=== PATIENT | female | born 1940 | race Caucasian/White ===

== ENCOUNTER 2018-07-05 14:04 | Inpatient (IN) | payer MEDICARE ==
[~2018-07-05] VITALS: Ht 162.6 cm; Wt 59.1 kg
--- OUTSIDE RECORDS SUMMARY | 2018-07-05 14:07 | XMS REPORT | Encounter Summary ---
Author Organization Unknown Address [address] [place] [id number] Phone [phone] Reason for Visit Medical Complaint Instructions 1. Impacted cerumen earwax blockage: care instructions Discussion Note: None recorded. Plan of Care Patient Instructions Earwax is a natural substance that protects the ear canal. Normally, earwax drains from the ears and does not cause problems. Sometimes earwax builds up and hardens. Earwax blockage (also called cerumen impaction) can cause some loss of hearing and pain. When wax is tightly packed, you will need to have your doctor remove it. Follow-up care is a brice part of your treatment and safety. Be sure to make and go to all appointments, and call your doctor if you are having problems. Its also a good idea to know your test results and keep a list of the medicines you take. Reminders Provider Appointments None recorded. Lab None recorded. Referral None recorded. Procedures None recorded. Surgeries None recorded. Imaging None recorded. Medications None recorded. Medications Administered None recorded. Vitals Height Weight BMI Blood Pressure 5 ft 3 in 127 lbs 22.5 kg/m2 110/60 mm[Hg] Lab Results None recorded. Allergies Code Code System Name Reaction Severity Status Onset NKDA Problems No Known Problems Procedures None recorded. Vaccine List None recorded. Social History Smoking Status Former Smoker Past Encounters 12/21/2017 Impacted Cerumen Dana Raymond, [facility]-C: [address] [place] [address], Ph. History of Present Illness Ear Complaint Reported By: Patient HPI: Location: bilateral. Quality: ears feel full/plugged. Context: no sick contacts, no recent swimming/water in ear, no exposure to second hand smoke, no head trauma, not grinding teeth, no recent air travel. Modifying factors: does not hurt to lie on, or pull on ear, does not hurt to chew. Associated Symptoms: no discharge from the ears, no nose/sinus problems, no popping noise in the ears, no ringing in the ears, no fever, no chills, no earache, no dizziness, no vertigo, no headache, no muscle aches, hearing loss Review of Systems:ROS as noted in the HPI Review of Systems Basic Reported By: Patient Physical Exam Adult Basic, Adult Female Complete, Adult Male Complete Reported By: Patient Constitutional: General Appearance: healthy-appearing, well-nourished, well-developed. Level of Distress: NAD. Ambulation: ambulating normally Psychiatric: Mental Status: active and alert. Orientation: to time, to place, to person Eyes: Lids and Conjunctivae: non-injected, no discharge, no pallor Wrm-Ugpf-Vhyxf-Throat: Ears: no lesions on external ear, no outer ear tenderness, EACs clear, TMs clear, TM mobility normal, EAC occluded with cerumen, cerumen removed to visualize TM. Hearing: no hearing loss. Nose: no lesions on external nose, nares patent, no septal deviation, nasal passages clear, no sinus tenderness, no nasal discharge. Lips, Teeth, and Gums: no mouth or lip ulcers, no bleeding gums, normal dentition. Oropharynx: moist mucous membranes, no erythema, no exudates, tonsils not enlarged Lungs: Respiratory effort: no dyspnea, no tachypnea, no use of accessory muscles, no intercostal retractions Cardiovascular: Heart Auscultation: RRR, no murmurs Neurologic: Gait and Station: normal gait, normal station
--- OUTSIDE RECORDS SUMMARY | 2018-07-05 14:07 | XMS REPORT | Continuity of Care Document ---
Author Author [facility] Interface Address Unknown Phone Unavailable Problems Problem Status Onset Date Classification Date Reported Comments Source Impacted cerumen 12/21/2017 Diagnosis 12/21/2017 [facility] Medications Medication Details Route Status Patient Instructions Ordering Provider Order Date Source Allergies, Adverse Reactions, Alerts Substance Category Reaction Severity Reaction type Status Date Reported Comments Source Immunizations Immunization Date Given Site Status Last Updated Comments Source Results Order Name Results Value Reference Range Date Interpretation Comments Source Vital Signs Vital Sign Value Date Comments Source Diastolic (mm Hg) 60 12/21/2017 [facility] Height 63 12/21/2017 [facility] Systolic (mm Hg) 110 12/21/2017 [facility] Weight 127 12/21/2017 [facility] Encounters Location Location Details Encounter Type Encounter Number Reason For Visit Attending Provider ADM Date DC Date Status Source [place] - [id number] Dana Andrade, CLAIMS DIRECTOR-C: [address] [place] [address], Ph. [id number] Dana Raymond 12/21/2017 [facility] Procedures Procedure Code Date Perfomer Comments Source
[2018-07-05] MEDS ORDERED: ASPIRIN 81 MG CHEW TAB PO ONE ×2 (14:15→18:15)
--- NOTE | 2018-07-05 14:45 | NUR ---
RADIOLOGY AT BEDSIDE AT THIS TIME FOR CXR.
--- NOTE | 2018-07-05 15:34 | Diagnostic Imaging Report ---
Examination: Single AP view of the chest. COMPARISON: None. INDICATION: Chest and left arm pain DISCUSSION: The patient is rotated to the right. The lungs are well-inflated. Patchy right middle lobe airspace disease may be attributable to patient rotation. The left lung is clear. Tortuous thoracic aorta with convexity of the right paratracheal region of the mediastinum likely reflective of great vessel tortuosity. No overt pulmonary edema. No acute osseous abnormality. IMPRESSION: Patchy right middle lobe opacity may be a consequence of rightward patient rotation. Upright PA and lateral chest radiographs are suggested for further evaluation when clinically feasible. Otherwise no acute cardiopulmonary abnormality. Signed by: Dr. Phoenix Malone M.D. on 07/05/2018 3:31 PM
[2018-07-05 15:56] LABS: BILIRUBIN,URINE NEGATIVE (NEGATIVE); CLARITY,URINE SL CLOUDY (CLEAR); COLOR,URINE YELLOW (YELLOW); KETONES,URINE NEGATIVE (NEGATIVE); LEUKOCYTE ESTERASE ,URINE NEGATIVE (NEGATIVE); NITRITE,URINE NEGATIVE (NEGATIVE); PROTEIN,URINE DIPSTICK NEGATIVE (NEGATIVE); URINE UROBILINOGEN 0.2 mg/dL (0.2 - 1)
[2018-07-05 15:59] LABS: BACTERIA,URINE MANY /HPF; EPITHELIAL CELLS,URINE MANY /LPF
[2018-07-05 16:02] LABS: EOSINOPHILS % 0.1 % (0.0-6.0); HEMATOCRIT 38.6 % (34.2-44.1); HEMOGLOBIN 12.1 g/dL (12.0-16.0); LYMPHOCYTES % 1.7 % (18.0-39.1); MEAN CORPUSCULAR HEMOGLOBIN 30.8 pg (28-32); MEAN CORPUSCULAR HGB CONC 31.3 g/dL (31-35); MEAN CORPUSCULAR VOLUME 98.2 fL (81-99); MONOCYTES % 0.7 % (4.4-11.3); NEUTROPHILS % 4.5 % (38.7-80.0); PLATELET COUNT 309 x10e3/uL (140-360); RED BLOOD COUNT 3.93 x10e6/uL (3.6-5.1); RED CELL DISTRIBUTION WIDTH 13.7 % (11.7-14.4)
[2018-07-05 16:05] LABS: INR 0.88; PARTIAL THROMBOPLASTIN TIME 38.2 seconds (23.8-35.5); PROTHROMBIN TIME 12.4 seconds (11.9-14.5)
[2018-07-05 17:32] LABS: CHLORIDE 101 mmol/L (98-107); POTASSIUM 4.2 mmol/L (3.5-5.1); SODIUM 143 mmol/L (136-145)
[2018-07-05 17:37] LABS: ANION GAP 14.2 mmol/L (8-16); CARBON DIOXIDE 32 mmol/L (22-29)
[2018-07-05 17:38] LABS: ALANINE AMINOTRANSFERASE 14 IU/L (0-55); ALBUMIN 3.5 g/dL (3.5-5.0); ALKALINE PHOSPHATASE 59 IU/L (40-150); BLOOD UREA NITROGEN 19 mg/dL (7-26); BUN/CREATININE RATIO 22 (6-25); CALCIUM 9.5 mg/dL (8.4-10.2); CREATINE KINASE 86 IU/L (29-168); CREATININE, SERUM 0.87 mg/dL (0.57-1.11); EST GLOMERULAR FILTRATION RATE > 60 ML/MIN (60-); GLUCOSE 95 mg/dL (74-118)
[2018-07-05 18:45] LABS: CREATINE KINASE MB 1.7 ng/mL (0-5.0)
[2018-07-05] MEDS ORDERED: ALBUTEROL/IPRATROPIUM 3 ML NEB NEB ONE (19:15)
--- NOTE | 2018-07-05 19:15 | NUR ---
REPORT GIVEN TO SHERLY SPENCE
[2018-07-05] MEDS ORDERED: NITROGLYCERIN 0.4 MG SUBL SL PRN (19:30)
[2018-07-05 20:00] VITALS: BP 122/68
--- NOTE | 2018-07-05 20:15 | NUR ---
REPORT CALLED AND PT TRANSFERED TO RM 104. ACCEPTING NURSE IS AWARE OF PTS ARRIVAL TO FLOOR.
--- OUTSIDE RECORDS SUMMARY | 2018-07-05 20:33 | XMS REPORT ---
Author [facility] Address Unknown Phone Unavailable Care Team Providers Care Consumer Services Consultant Name Role Phone Johnathan ALCANTARA Unavailable Unavailable Problems This patient has no known problems. Allergies, Adverse Reactions, Alerts This patient has no known allergies or adverse reactions. Medications This patient has no known medications. Results Test Description Test Time Test Comments Text Results Atomic Results Result Comments CHEST SINGLE (PORTABLE) 2018-07-05 15:28:00 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 CO MPARISON: None. INDICATION: Chest and left arm pain DISCUSSION: The patient is rotated to the right. The lungs are well-inflated. Patchy right middle lobe airspace disease may be attributable to patient rotation. The left lung is clear. Tortuous thoracic aorta with convexity of the right paratracheal region of the mediastinum likely reflective of great vessel tortuosity. No overt pulmonary edema. No acute osseous abnormality. IMPRESSION: Patchy right middle lobe opacity may be a consequence of rightward patient rotation. Upright PA and lateral chest radiographs are suggested for further evaluation when clinically feasible. Otherwise no acute cardiopulmonary abnormality. Signed by: Dr. Fabienne Liz M.D. on 07/05/2018 3:31 PM Dictated By: FABIENNE LIZ MD [id number] Transcribed By: MARCELLUS on 07/05/18 1531 COPY TO: SATINDER MONET NP
[2018-07-06] VITALS (9 sets, daily range): BP systolic 101–119; BP diastolic 65–76
[2018-07-06 04:23] LABS: CREATINE KINASE MB 1.2 ng/mL (0-5.0)
[2018-07-06] MEDS ORDERED: METOPROLOL TART25 MG PO (04:38)
[2018-07-06] MEDS ORDERED: KLOR-CON M2020 MEQ PO (04:38)
[2018-07-06] MEDS ORDERED: ALBUTEROL0.63 MG/3 (04:38)
[2018-07-06] MEDS ORDERED: HYDROCHLOROTHIA25 MG (04:38)
[2018-07-06] MEDS ORDERED: DIGOXIN125 MCG PO (04:38)
[2018-07-06] MEDS ORDERED: ASPIR 8181 MG PO (04:38)
--- NOTE | 2018-07-06 07:41 | NUR ---
PATIENT HAD AFIB WITH RVR WAS GIVEN STAT METOPROLOL VIA IV, PATIENT IS STABLE, CALL LIGHT IN REACH, WILL CONTINUE TO MONITOR
[2018-07-06] MEDS ORDERED: METOPROLOL TARTRATE INJ 1 MG/ML VIAL IV PRN (07:45)
[2018-07-06] MEDS ORDERED: ALBUTEROL SULF 0.083% NEB SOLN 3 ML NEB NEB PRN (08:00)
[2018-07-06] MEDS ORDERED: LEVALBUTEROL HCL SOLN NEBU 0.63 MG/3 ML NEB INH PRN (08:45)
[2018-07-06] MEDS ORDERED: METOPROLOL TARTRATE 25 MG TAB PO SCH (09:00)
[2018-07-06] MEDS ORDERED: ASPIRIN 325 MG TAB EC PO SCH (09:00)
[2018-07-06] MEDS: ASPIRIN 81 MG CHEW TAB PO SCH (09:17)
[2018-07-06] MEDS: HYDROCHLOROTHIAZIDE 25 MG TAB PO SCH (09:17)
[2018-07-06] MEDS: DIGOXIN 0.125 MG TAB PO SCH (09:18)
[2018-07-06] MEDS: POTASSIUM CHLORIDE 20 MEQ TAB CR PO SCH ×2 (09:18→18:26)
[2018-07-06] MEDS: PREDNISONE 20 MG TAB PO SCH (09:19)
--- NOTE | 2018-07-06 10:15 | NUR ---
Patient alert and responsive, Tachy and Afib with RVR controlled at this time at 80-90 bpm, on continuous oxygen, OOB to bathroom with assist. Patient seen by Dr. Nelson and rounds by attending, orders in place for Nebs, Steroids, CT Chest and will monitor
[2018-07-06] MEDS: LEVALBUTEROL HCL SOLN NEBU 0.63 MG/3 ML NEB INH SCH ×2 (11:05→20:30)
[2018-07-06 11:38] LABS: CREATINE KINASE MB 1.5 ng/mL (0-5.0)
--- NOTE | 2018-07-06 11:40 | NUR ---
Breathing treatments completed by RT and patient feeling better.
--- NOTE | 2018-07-06 11:40 | NUR ---
Patient's daughter in the room and signed consent for for stress test to be completed today and Patient NPO at this time
[2018-07-06] MEDS ORDERED: SODIUM CHLORIDE 0.9% 50ML 0 ML ONE (11:49)
[2018-07-06] MEDS ORDERED: IOPAMIDOL 370 MG/ML 200 ML INFUS..BTL INJ ONE ×2 (11:49→15:43)
--- NOTE | 2018-07-06 12:28 | Diagnostic Imaging Report ---
EXAM: CT Chest WITH contrast INDICATION: Cough, shortness of breath, possible pneumonia. COMPARISON: Chest radiograph 07/05/2018. TECHNIQUE: Chest was scanned utilizing a multidetector helical scanner from the lung apex through the level of the adrenal glands without administration of IV contrast. Coronal and sagittal reformations were obtained. Routine protocol was performed. IV CONTRAST: 100 mL of Isovue-370. RADIATION DOSE: Total DLP: 414.6 mGy*cm Dose modulation, iterative reconstruction, and/or weight based adjustment of the mA/kV was utilized to reduce the radiation dose to as low as reasonably achievable. FINDINGS: LINES/ TUBES: None. LUNGS AND AIRWAYS: The central airways are patent. There is diffuse mild bronchial wall thickening. There are upper lung predominant moderate centrilobular and paraseptal emphysematous changes. Motion artifact limits evaluation for focal abnormality. There is biapical pleural-parenchymal opacity, suggestive of prior granulomatous disease. There is homogeneous likely atelectasis in the right middle lobe with associated volume loss. Mild patchy atelectasis in the right greater than left lower lobe. There is a groundglass area measuring up to 1.6 cm in the right upper lobe on series 3, image 44. There is a 5 mm groundglass nodule in the left upper lobe on image 62. PLEURA: The pleural spaces are clear. HEART AND MEDIASTINUM: The thyroid gland is normal. No mediastinal, hilar or axillary lymphadenopathy. Mild cardiomegaly. No evidence of pericardial effusion. Atherosclerotic calcifications of the coronary arteries, thoracic aorta, and branch vessels. UPPER ABDOMEN: Limited contrast-enhanced views of the upper abdomen. Indeterminant left adrenal nodule, measuring up to 1.7 cm (series 2, image 121; 74 HU). BONES: No acute osseous abnormality. No suspicious lytic or blastic lesions. Degenerative changes of the visualized spine. SOFT TISSUES: Unremarkable. IMPRESSION: No evidence of lobar pneumonia. Homogeneous opacity in the right middle lobe likely represents atelectasis. Focal groundglass opacity in the right upper lobe, measuring up to 1.6 cm, which may reflect a small site of aspiration or pneumonia. However, given the focal appearance, groundglass nodule is possible. Additional 5 mm left upper lobe groundglass nodule. Recommend follow-up chest CT in 3 months. Moderate emphysematous changes of the lungs. Indeterminant 1.7 cm left adrenal nodule. Adrenal protocol CT or MRI is suggested for further evaluation. Signed by: Dr. Amanda Tellez MD on 07/06/2018 12:25 PM
--- NOTE | 2018-07-06 13:05 | Consultation ---
DATE OF CONSULTATION: 07/06/2018 Cardiology Consultation REASON FOR CONSULTATION: Chest pain. HISTORY OF PRESENT ILLNESS: This is a 78-year-old woman with a history of atrial fibrillation, severe COPD, and hypertension, who presents with complaints of chest pain. The patient developed chest pain yesterday morning, described as sharp with radiation to the left shoulder. This pain was 8/10 in severity and lasted several hours. There was no nausea or diaphoresis. The patient endorses chronic shortness of breath with difficulty speaking due to her significant dyspnea. REVIEW OF SYSTEMS: Negative except as per HPI. PAST MEDICAL HISTORY: 1. Atrial fibrillation, not on anticoagulation due to fall and bleeding risk. 2. Severe COPD. 3. Hypertension. ALLERGIES: PLEASE SEE EMR MEDICATIONS: Please see medication list. SOCIAL HISTORY: The patient previously smoked. No alcohol or illicit drugs. FAMILY HISTORY: Noncontributory to current illness. PHYSICAL EXAMINATION: VITAL SIGNS: Temperature 97.6 degrees, pulse 104, respiratory rate of 24, blood pressure 115/76, and oxygen saturation 96% on 3 L nasal cannula. GENERAL: Frail elderly woman, in no acute distress. Awake and alert. HEENT: Normocephalic, atraumatic. Pupils equal. No scleral icterus. NECK: Supple. No thyromegaly or cervical lymphadenopathy. No carotid bruits. LUNGS: Clear to auscultation bilaterally. CARDIOVASCULAR: Tachycardic. Irregularly irregular. Systolic murmur at the right upper sternal border. Normal S1, S2. ABDOMEN: Soft, nontender. EXTREMITIES: No edema. LABORATORY DATA: WBC 7.13, hemoglobin 12.1, hematocrit 38.6, platelets 309. Sodium 142, potassium 4.2, chloride 101, CO2 of 32, BUN 19, and creatinine 0.87. Troponin less than 0.5. Cholesterol 150, triglycerides 82, LDL 60, HDL 74. EKG; atrial fibrillation, nonspecific ST and T-wave abnormalities. IMPRESSION: 1. Chest pain. 2. Atrial fibrillation with rapid ventricular response. 3. Chronic obstructive pulmonary disease. 4. Hypertension. RECOMMENDATIONS: Repeat cardiac biomarkers were within normal limits. Given the patient's risk factors, ischemic evaluation is warranted with nuclear stress test. Echocardiogram was noted with preserved LVEF. Unable to evaluate diastolic function due to atrial fibrillation. Continue aspirin. We will increase metoprolol for better rate control. Continue digoxin. Monitor the patient on telemetry while admitted. Although the patient's CHADS-VASc score is elevated, she is not on anticoagulation due to her fall and bleeding risk. Thank you for this consult. We will continue to follow. MD JAYANT Byrne/MODL /[id number]
[2018-07-06] MEDS ORDERED: ATROPINE SULFATE 1 MG/ML VIAL IV ONE (14:43)
--- NOTE | 2018-07-06 15:15 | History and Physical ---
HISTORY OF PRESENT ILLNESS: A 78-year-old white female, very poor historian. PAST MEDICAL HISTORY: Positive for COPD, history of chronic atrial fibrillation, came here with chest pain. REVIEW OF SYSTEMS: Cardiovascular: She had chest pain, not now. No palpitations. Respiratory: She has shortness of breath and cough. Gastrointestinal: No nausea, no vomiting. No diarrhea. Genitourinary: No frequency or dysuria. ALLERGIES: NOT ALLERGIC TO ANYTHING. SOCIAL HISTORY: She used to smoke. She does not smoke any more. She does not drink alcohol. PAST MEDICAL HISTORY: Positive for hypertension, chronic atrial fibrillation, and COPD. PHYSICAL EXAMINATION: HEART: Showed irregularly irregular heart rate. Normal S1, S2 sound. LUNGS: Show decreased breath sounds bilaterally. No wheezing. No rhonchi. No crackles. ABDOMEN: Soft. EXTREMITIES: Show no evidence of cyanosis or trauma. VITAL SIGNS: Blood pressure is 105/68, temperature 97.4, heart rate 85 per minute, respiratory rate 20 per minute, oxygen saturation 96%. IMAGING DATA: Chest x-ray showed questionable infiltrate. Recommend another chest x-ray view. LABORATORY DATA: BMP; sodium 143, potassium 4.2, chloride 101, CO2 of 32, BUN 19, creatinine 0.87, glucose 95. On CBC, white count 7.13, hemoglobin 12.1, hematocrit 38.6, platelet count 309,000. PT 12.4, INR 0.88, PTT is 38.2. AST 23, ALT 14, total bilirubin 0.5, alkaline phosphatase 69. IMPRESSION: 1. Chronic obstructive pulmonary disease exacerbation. 2. Chest pain. 3. Atrial fibrillation with rapid ventricular response. PLAN OF TREATMENT: We are going to change albuterol to Xopenex q.6 hours around the clock and q.4 hours as needed for shortness of breath. Continue aspirin 81 mg daily. Continue digoxin 0.125 mg daily, hydrochlorothiazide 25 mg daily, metoprolol 25 mg twice a day, metoprolol 5 mg IV q.6 hours as needed for tachycardia, nitroglycerin p.r.n. for chest pain, no more than three tablets. She is also on potassium 20 mEq twice a day. Prednisone 20 mg daily. Spiriva 1 inhalation daily. Cardiology consult with Dr. Salcido because of chest pain. Three sets of cardiac enzymes were done, the first one was borderline high at 0.05. Two last ones were completely normal. EKG shows atrial fibrillation. No evidence of any ST-segment elevation or depression . MD WICHO Miranda/FAUSTINO /[id number]
[2018-07-06] MEDS ORDERED: SODIUM CHLORIDE 0.9% 50ML 50 ML ONE (15:43)
--- NOTE | 2018-07-06 16:03 | NUR ---
Patient picked up for procedure
--- NOTE | 2018-07-06 16:05 | NUR ---
PATIENT PICKED UP FOR PROCEDURE
--- NOTE | 2018-07-06 17:06 | Consultation ---
DATE OF CONSULTATION: Pulmonary consultation. REASON FOR CONSULTATION: Possible chronic obstructive pulmonary disease. HISTORY OF PRESENT ILLNESS: Ms. Pacheco is a 78-year-old female. I am unable to get much history as patient is unable to give me much history. She is extremely hard of hearing and most of the history is with writing. She came in with chest pain and tightness in the emergency room. She is denying any complaints of chest pain, nausea, or vomiting. She has history of smoking, but quit 20 years ago. She has hoarseness of her voice, which she reports has been there for quite some time. REVIEW OF SYSTEMS: GENERAL: Denies any fever or chills. HEAD: Denies any head trauma. ENT: Denies any earaches. CVS: Chest pain. RESPIRATORY: Shortness of breath. The rest of the review of systems are negative except as in HPI. PAST MEDICAL HISTORY: 1. Hypertension. 2. Hyperlipidemia. 3. Reported history of COPD. FAMILY AND SOCIAL HISTORY: She currently does not smoke. Ex-smoker. PHYSICAL EXAMINATION: VITAL SIGNS: Temperature 97.6, pulse of 104, blood pressure 115/76, respiratory rate of 18, and O2 saturation 96%. HEENT: Head is atraumatic and normocephalic. NECK: Supple. CHEST: Clear to auscultation bilaterally with occasional wheezing. Hoarseness. HEART: S1, S2 audible. ABDOMEN: Soft, nontender, and nondistended. EXTREMITIES: No pedal edema. NEUROLOGIC: Awake and alert. No focal neurologic deficit. IMAGING DATA: Chest x-ray is reported as right middle lobe opacity. ASSESSMENT: Ms. Pacheco is a 78-year-old female. She presented with chest pain, abnormal chest x-ray, likely positional hoarseness of voice, which she reports has been chronic. Current problems: 1. Abnormal chest x-ray, possible mass. 2. History of smoking. 3. Weight loss and hoarseness. PLAN: I agree with CT chest, which has been ordered. Continue the patient on nebulizer treatment. We will follow the CT chest and further recommendation after reviewing CT chest. Thank you for this consult. MD DELMIS Dawson/FAUSTINO /[id number]
--- NOTE | 2018-07-06 18:24 | NUR ---
PATIENT RETURNED FROM PROCEDURE, NO SIGNS OF DISTRESS, RESTING COMFORTABLY, FAMILY MEMBER IN ROOM, CALL LIGHT WITHIN REACH, WILL CONTINUE TO MONITOR
[2018-07-06] MEDS: METOPROLOL TARTRATE 25 MG TAB PO SCH (18:26)
[2018-07-06 20:35] LABS: CREATINE KINASE MB 1.7 ng/mL (0-5.0)
[2018-07-07] VITALS (7 sets, daily range): BP systolic 99–123; BP diastolic 62–89
[2018-07-07] MEDS: LEVALBUTEROL HCL SOLN NEBU 0.63 MG/3 ML NEB INH SCH ×3 (01:45→13:00)
[2018-07-07] MEDS ORDERED: TIOTROPIUM 18 MCG INH POWDER INH SCH (06:00)
--- NOTE | 2018-07-07 07:06 | NUR ---
Received patient this morning, alert and responsive, in bed during rounds, and pains well managed, some dyspnea on exertion and on O2 2.5L NC, NEB treatments at this time, bed alarms in place and will monitor
[2018-07-07] MEDS: ASPIRIN 81 MG CHEW TAB PO SCH (09:02)
[2018-07-07] MEDS: HYDROCHLOROTHIAZIDE 25 MG TAB PO SCH (09:02)
[2018-07-07] MEDS: POTASSIUM CHLORIDE 20 MEQ TAB CR PO SCH ×2 (09:03→17:36)
[2018-07-07] MEDS: METOPROLOL TARTRATE 25 MG TAB PO SCH ×2 (09:03→17:36)
[2018-07-07] MEDS: PREDNISONE 20 MG TAB PO SCH (09:03)
[2018-07-07] MEDS: DIGOXIN 0.125 MG TAB PO SCH (09:03)
--- NOTE | 2018-07-07 09:41 | NUR ---
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
--- NOTE | 2018-07-07 11:33 | NUR ---
Rounds by Dr. Nelson and discussed plan with patient. Recommending attending to consult ENT for laryngoscopy due to hoarseness.
--- NOTE | 2018-07-07 12:25 | Progress Note ---
DATE: 07/07/2018 Cardiology Progress Note The patient continues to complain of some throat and chest pain. She endorses chronic shortness of breath. OBJECTIVE: VITAL SIGNS: Temperature 97.9 degrees, pulse 95, respiratory rate 21 blood pressure 100/64, oxygen saturation 95% on 2.5 L nasal cannula. GENERAL: Awake, alert, in no acute distress, frail, elderly woman. LUNGS: Clear to auscultation bilaterally. No wheezes or crackles. CARDIOVASCULAR: Tachycardic, irregularly irregular. Normal S1, S2. Systolic murmur at the right upper sternal border. ABDOMEN: Soft, nontender. EXTREMITIES: No edema. CARDIAC MEDICATIONS: Metoprolol tartrate 50 mg p.o. b.i.d., digoxin 0.125 mg p.o. daily, hydrochlorothiazide 25 mg p.o. daily, aspirin 81 mg p.o. daily. LABORATORY DATA: None today. TELEMETRY: Atrial fibrillation with rapid ventricular response. IMPRESSION: 1. Chest pain. 2. Atrial fibrillation with rapid ventricular response. 3. Chronic obstructive pulmonary disease. 4. Hypertension. RECOMMENDATIONS: No evidence of myocardial infarction on serial cardiac biomarkers. Nuclear stress test was without evidence of ischemia. Continue aspirin, although patient's CHADS-VASc score is elevated. She is not on anticoagulation due to her fall and bleeding risk. Assess response to increase in metoprolol for rate control. Continue digoxin. Thank you for this consult. We will continue to follow. Please have patient follow up with Dr. Salcido in the office in two weeks. Carito Howard MD ABS/MODL /[id number]
--- NOTE | 2018-07-07 12:32 | NUR ---
CASE MANAGEMENT ASSESSMENT Desk Representative to bedside to discuss plan of care with patient/family. CM/SW role and care transitions discussed. Anticipated discharge plan discussed along with duration of care. CM/SW discussed patients right to make decisions in care. CM/SW work hours given. Patient lives: with [facility] Admit/Transfer: thru ED Hospital/ER visits since last admit: 0 POA/Emergency contact: daughter Skylar Webb [phone] Current/Previous Home Health: none PCP/Follow-up Care: Dr. Uribe - PCP; advised pt to follow up within 5-7 days of discharge. Current/Previous DME: oxygen thru [employer] Medications (referring to index hospitalization or the first time you were in the hospital) a. Were changes made in your medications when you were in the hospital on [date of index hospitalization]? n/a b. Did you understand the changes? n/a c. Were you able to obtain your new medications right away? n/a d. Were you able to take your medications like the doctor wanted you to? n/a e. Did the hospital give you an accurate, easy to understand list of medications when you left? n/a Scale of 1-10 how comfortable does patient feel with disease management in outpatient settin Other Services: none Employment Status: retired Areas of Concerns: SOB Referral Needs: none Education Needs: medical management IMM/SEN given and signed (if applicable): IMM was given this AM Goal for discharge: home CM/SW left business card at the bedside with contact information. Name and number was also written on the patients whiteboard. Patient verbalized understanding of discussion. CM will follow-up with ongoing discharge and transition of care needs.
[2018-07-07] MEDS ORDERED: METHYLPREDNISOLONE SOD SUCC 40 MG/ML VIAL 1ML IV SCH (14:00)
--- NOTE | 2018-07-07 15:01 | NUR ---
Patient OOB and ambulating, consult to Dr. Edwards has been called.
[2018-07-07] MEDS ORDERED: SPIRIVA18 MCG INH (15:22)
[2018-07-07] MEDS ORDERED: PROAIR HFA INH8.5 GM INH (15:23)
--- NOTE | 2018-07-07 16:13 | NUR ---
Rounds by Dr. Edwards, saw patient and patient will f/u with him. Patient seen by attending and discharged patient, prescriptions left in the chart, documentation provided to the patient.
--- NOTE | 2018-07-07 16:16 | NUR ---
SCHEDULE FOLLOW UP APPOINTMENT WITH DR. HAND/CHRIS IN 1-2 WEEKS. TEL:[phone] SCHEDULE FOLLOW UP APPOINTMET WITH DR. PEREZ (ENT) IN 1-2 WEEKS. TEL: [phone] SCHEDULE FOLLOW UP APPOINTMENT WITH DR. HUERTAS IN 2 WEEKS. TEL: [phone]
--- NOTE | 2018-07-07 21:37 | Consultation ---
DATE OF CONSULTATION: 07/07/2018 HISTORY OF PRESENT ILLNESS: I was kindly asked to see this 78-year-old woman for evaluation of hoarseness. The patient has a history of advance COPD and has a history of smoking and there was concern for possible laryngeal carcinoma. She is a poor historian but several family members were at the bedside. They report she has abnormalities for 1 to 3 years. She also has a history of decreased hearing for more than 30 years and wears hearing aids. PAST MEDICAL HISTORY AND PAST SURGICAL HISTORY: Reviewed in detail in the chart. PHYSICAL EXAMINATION: On examination, the right pinna is normal. The right postauricular area has no erythema, swelling or tenderness. External auditory canal has cerumen impacted in the medial aspect and the tympanic membrane cannot be visualized. The left pinna is normal. The left external auditory canal has cerumen impacted in the medial aspect and a small amount of tympanic membrane could be visualized and appeared unremarkable. There is no postauricular pain, swelling or tenderness. Nasal examination, she has normal nasal mucosa. There is a slight nasal septal deviation to the left. Oral cavity examination is unremarkable. Posterior pharyngeal wall was unremarkable. She has symmetric elevation of the soft palate. There is no palpable cervical adenopathy. On fiberoptic diagnostic laryngoscopy, she has normal vocal cord motion. There is no mass. There is no edema or erythema at the posterior commissure of the larynx. There is noted to be irregular motion of the vocal cords bilaterally consistent with muscle tension dysphonia. The quality of her voice is noted to be strained also consistent with muscle tension dysphonia. ASSESSMENT: 1. Hoarseness. 2. 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 3. Chronic obstructive pulmonary disease. 4. Hearing loss. 5. Impacted cerumen. PLAN: Cleared for discharge with outpatient evaluation and treatment. MD DALY Bridges/BINGL /[id number]
--- NOTE | 2018-07-07 22:38 | Discharge Summary ---
HOSPITAL COURSE: The patient is a 78 years old female with a past medical history positive for chronic obstructive pulmonary disease and hypertension, came to the hospital complaining of chest pain. She had an adenosine Cardiolite stress test done by Dr. Carito Howard of Cardiology, who came back negative for ischemia. She also had three sets of cardiac enzymes completely negative. She also had a CT of the chest, which showed the following findings. No evidence of lobar pneumonia. She has homogeneous opacity on the right middle lobe, likely represent atelectasis. She also was found a focal ground-glass opacity in the right upper lobe measuring up to 1.6 cm, which may reflect a small site of aspiration pneumonia. However, given the focal appearance of ground-glass nodule is possible, additional 5 mm left upper lobe ground-glass nodule, recommend followup chest CT in three months. Moderate emphysematous changes of the lungs. Intermediate 1.7 cm left adrenal nodule. Adrenal protocol CT or MRI is suggested for further evaluation. So the patient is going home today. PHYSICAL EXAMINATION: HEART: Showed regular rhythm. Normal S1, S2 sound. LUNGS: Clear bilaterally. ABDOMEN: Soft. EXTREMITIES: Show no evidence of cyanosis or hematoma. VITAL SIGNS: Blood pressure is 123/89, temperature is 97.5, heart rate 95 per minute, respiratory rate 20 per minute, oxygen saturation 98%. She also had a change in her voice, which apparently according to family is going on for a while. We are going to get FINAL IMPRESSION: 1. Atypical chest pain with negative stress Cardiolite stress. 2. Chronic obstructive pulmonary disease. 3. Smoker. 4. History of essential hypertension. 5. Echocardiogram showed ejection fraction of 30% to 40%. EKG showed atrial fibrillation. PLAN OF TREATMENT: The patient will continue albuterol q.4 hours as needed for shortness of breath, Spiriva daily. Continue oxygen. Continue metoprolol 50 mg twice a day, digoxin 0.125 mg daily, hydrochlorothiazide 25 mg daily and then the patient is high risk to take anticoagulation due to tendency to fall, so aspirin would be a better choice for her at this point in time. Follow up with Dr. Nelson of Pulmonology, Dr. Muñoz, and follow with her primary care physician. MD WICHO Miranda/FAUSTINO /[id number]
== END 2018-07-07 17:44 | disposition home or self-care (01) | DRG 190 ==
LOC: ER 14:04 → ERHOLD 20:31 → MED/SURG 20:47
PROVIDERS: ADMIT Internal Medicine; ATTEND Internal Medicine
DX: J44.1 Chronic obstructive pulmonary disease with (acute) exacerbation (principal); J69.0 Pneumonitis due to inhalation of food and vomit; J96.21 Acute and chronic respiratory failure with hypoxia; F17.200 Nicotine dependence, unspecified, uncomplicated; I10 Essential (primary) hypertension; R07.89 Other chest pain; I48.91 Unspecified atrial fibrillation; J38.3 Other diseases of vocal cords; H91.90 Unspecified hearing loss, unspecified ear; H61.20 Impacted cerumen, unspecified ear; R63.4 Abnormal weight loss; R91.1 Solitary pulmonary nodule
CPT/HCPCS: 36415; 71045; 71260; 78452; 80053; 80061; 81001; 82550; 82553; 83735; 83880; 84484; 85025; 85610; 85730; 87086; 93005; 93017; 93306; 94640; 99284; A9502; J0461; J1250; J2920; J7512; Q9967